=== PATIENT | female | born 1945 | race Caucasian/White ===

== ENCOUNTER 2023-04-24 17:16 | Inpatient (IN) | payer OTHER, MEDICAID ==
[~2023-04-24] VITALS: Ht 160 cm; Wt 81.6 kg
[~2023-04-24 17:16] MED LIST: ASPI81CT PO; GLYB5TAB9 PO; IBUP-2213 PO; LISI20TA2 PO; METF-1243 PO; [UNRECOGNIZED DRUG - CODE] SC
[2023-04-24 17:21] VITALS: BP 139/67; PULSE 110; RESP 22; TEMP 98; O2SAT 100
[2023-04-24 18:17] LABS: BASOPHILS % (AUTO) 0.6 % (0.0-2.0); EOSINOPHILS % (AUTO) 0.4 % (0.0-4.0); HEMATOCRIT 23.3 % (36-48); LYMPHOCYTES # (AUTO) 0.8 K/uL (2.5-16.5); LYMPHOCYTES % (AUTO) 17.8 % (20.5-51.1); MEAN CORPUSCULAR HEMOGLOBIN 31 pg (27-31); MEAN CORPUSCULAR HGB CONC 34 g/dL (33-37); MEAN CORPUSCULAR VOLUME 89.9 fL (80-94); MONOCYTES # (AUTO) 0.3 K/uL (0.8-1.0); MONOCYTES % (AUTO) 6.1 % (1.7-9.3); NEUTROPHILS # (AUTO) 3.3 K/uL (1.8-7.7); NEUTROPHILS % (AUTO) 75.1 % (42.2-75.2); PLATELET COUNT (AUTO) 143 K/uL (140-450); RED CELL DISTRIBUTION WIDTH 18.2 % (11.6-13.7); WHITE BLOOD COUNT (AUTO) 4.4 K/uL (4.8-10.8)
[2023-04-24] MEDS ORDERED: METOPROLOL 5 MG/5 ML VIAL IVP ONE (18:35)
[2023-04-24 18:51] LABS: ALANINE AMINOTRANSFERASE 19 U/L (12-78); ALBUMIN 2.1 g/dL (3.4-5.0); ALKALINE PHOSPHATASE 214 U/L (50-136); ANION GAP 11.8 (8-16); ASPARTATE AMINOTRANSFERASE 57 U/L (15-37); CALCIUM 8.3 mg/dL (8.5-10.1); CARBON DIOXIDE 29.5 mmol/L (21-32); CHLORIDE 93 mmol/L (98-107); CREATININE 3.2 mg/dL (0.6-1.3); GLUCOSE 225 mg/dL (74-106); POTASSIUM 3.3 mmol/L (3.5-5.1); SODIUM SERUM 131 mmol/L (136-145); TOTAL BILIRUBIN 1.2 mg/dL (0.0-1.0); TOTAL PROTEIN, SERUM 8.9 g/dL (6.4-8.2); UREA NITROGEN, BLOOD 35 mg/dL (7-18)
[2023-04-24 20:16] LABS: FLU A ANTIGEN negative (NEGATIVE); FLU B ANTIGEN NEGATIVE (NEGATIVE)
[2023-04-24] MEDS ORDERED: INSU100S22 SUBQ (20:20)
[2023-04-24] MEDS ORDERED: METO25TA PO (20:20)
[2023-04-24] MEDS ORDERED: ROC.25 PO (20:20)
[2023-04-24] MEDS ORDERED: EPOE10004 IJ (20:20)
[2023-04-24] MEDS ORDERED: LOSA-272 PO (20:20)
[2023-04-24] MEDS ORDERED: PANT40EC PO (20:20)
[2023-04-24] MEDS ORDERED: APR10 PO (20:20)
[2023-04-24] MEDS ORDERED: ATOR10TA PO (20:20)
[2023-04-24] MEDS ORDERED: VITA1TAB44 PO (20:20)
[2023-04-24] MEDS ORDERED: FURO-570 PO (20:20)
[2023-04-24] MEDS ORDERED: ACET-2619 PO (20:20)
[2023-04-24] MEDS ORDERED: HUM SUBQ (20:20)
[2023-04-24] MEDS ORDERED: ACETAMINOPHEN 325 MG TAB PO PRN (21:00)
[2023-04-24] MEDS ORDERED: ONDANSETRON 4 MG/2 ML VIAL IVP PRN (21:00)
[2023-04-24] MEDS ORDERED: MORPHINE SULFATE 2 MG/ML SYR IVP PRN (21:00)
[2023-04-24] MEDS ORDERED: DIGOXIN 0.25 MG/ML AMP IV ONE (21:15)
[2023-04-25 00:23] LABS: APPEARANCE,URINE CLOUDY (CLEAR); BILIRUBIN,URINE 1+ (NEGATIVE); BLOOD, URINE 3+ (NEGATIVE); COLOR,URINE YELLOW (YELLOW); LEUKOCYTE ESTERASE ,URINE 3+ (NEGATIVE); NITRITE, URINE POSITIVE (NEGATIVE); PH,URINE 6.5 (5.0-9.0); PROTEIN,URINE 3+ (NEGATIVE); UGLUCOSE NEGATIVE (NEGATIVE)
[2023-04-25 00:26] LABS: ICTOTEST NEGATIVE (NEGATIVE)
[2023-04-25 00:27] LABS: BACTERIA,URINE 2+ /HPF (None Seen); MUCUS,URINE 1+ /LPF (None Seen); RBC,URINE >100 /HPF (0-5); SQUAMOUS EPITHELIAL CELL,UR 4-10 (MOD) /LPF (0-3 (FEW)); TRICHOMONAS,URINE None Seen /HPF (None Seen); WBC,URINE TOO MANY TO COUNT /HPF (0-5); WHITE BLOOD CELL CASTS,URINE 0-3 /LPF (None Seen); YEAST,URINE None Seen /HPF (None Seen)
[2023-04-25 07:40] LABS: BASOPHILS % (AUTO) 0.5 % (0.0-2.0); EOSINOPHILS % (AUTO) 0.2 % (0.0-4.0); HEMATOCRIT 23.7 % (36-48); HEMOGLOBIN 7.8 g/dL (12.0-16.0); LYMPHOCYTES % (AUTO) 18.1 % (20.5-51.1); MEAN CORPUSCULAR HEMOGLOBIN 31 pg (27-31); MEAN CORPUSCULAR HGB CONC 33 g/dL (33-37); MONOCYTES # (AUTO) 0.4 K/uL (0.8-1.0); MONOCYTES % (AUTO) 6.8 % (1.7-9.3); NEUTROPHILS # (AUTO) 3.9 K/uL (1.8-7.7); NEUTROPHILS % (AUTO) 74.4 % (42.2-75.2); PLATELET COUNT (AUTO) 116 K/uL (140-450); RED BLOOD CELL COUNT(AUTO) 2.55 MIL/uL (4.20-5.40); RED CELL DISTRIBUTION WIDTH 18.3 % (11.6-13.7); WHITE BLOOD COUNT (AUTO) 5.3 K/uL (4.8-10.8)
[2023-04-25 09:05] LABS: ALANINE AMINOTRANSFERASE 15 U/L (12-78); ALKALINE PHOSPHATASE 161 U/L (50-136); ANION GAP 11.4 (8-16); ASPARTATE AMINOTRANSFERASE 30 U/L (15-37); CALCIUM 8.2 mg/dL (8.5-10.1); CARBON DIOXIDE 29.5 mmol/L (21-32); CHLORIDE 94 mmol/L (98-107); GLUCOSE 141 mg/dL (74-106); MAGNESIUM 1.9 mg/dL (1.8-2.4); SODIUM SERUM 132 mmol/L (136-145); TOTAL BILIRUBIN 0.9 mg/dL (0.0-1.0); TOTAL PROTEIN, SERUM 8.3 g/dL (6.4-8.2); UREA NITROGEN, BLOOD 44 mg/dL (7-18)
[2023-04-25 09:08] LABS: CREATININE 4.4 mg/dL (0.6-1.3); POTASSIUM 2.9 mmol/L (3.5-5.1)
[2023-04-25] MEDS ORDERED: KCL 20 MEQ IN 100 mL PREMIX 100 ML IV SCH (10:24)
[2023-04-25] MEDS ORDERED: ATORVASTATIN 20 MG TAB ONE (12:48)
[2023-04-25] MEDS ORDERED: METOPROLOL 5 MG/5 ML VIAL ONE (12:49)
[2023-04-25] MEDS: ECOTRIN 81 MG TABEC PO SCH (12:57)
[2023-04-25] MEDS: APIXABAN 2.5 MG TAB PO SCH ×2 (12:58→20:36)
[2023-04-25] MEDS: ATORVASTATIN 20 MG TAB PO SCH (12:59)
[2023-04-25] MEDS: METOPROLOL 50 MG TAB PO SCH ×2 (14:58→20:37)
[2023-04-25 15:50] VITALS: BP 140/59; PULSE 83; RESP 18; TEMP 97.2; O2SAT 94
[2023-04-25 15:53] VITALS: PULSE 83; RESP 18; O2SAT 94
[2023-04-25 15:53] LABS: ANION GAP 10.8 (8-16); CARBON DIOXIDE 23.3 mmol/L (21-32); CHLORIDE 105 mmol/L (98-107); CREATININE 3.3 mg/dL (0.6-1.3); GLUCOSE 198 mg/dL (74-106); POTASSIUM 5.1 mmol/L (3.5-5.1); SODIUM SERUM 134 mmol/L (136-145); UREA NITROGEN, BLOOD 38 mg/dL (7-18)
[2023-04-25 16:09] LABS: CALCIUM 5.9 mg/dL (8.5-10.1)
[2023-04-25 16:20] VITALS: PULSE 81
[2023-04-25] MEDS ORDERED: DEXTROSE 50% 50 ML SYR IVP PRN (18:25)
[2023-04-25 20:00] VITALS: BP 141/47; PULSE 86; PULSE 91; RESP 18; TEMP 97.6; O2SAT 94; O2SAT 98
[2023-04-25] MEDS: INSULIN LISPRO SLIDING SCALE 100 UNITS/ML VIAL SUBQ PRN ×2 (20:32→20:39)
[2023-04-25 21:00] VITALS: PULSE 98; RESP 18; O2SAT 98
[2023-04-25] MEDS: BLOOD GLUCOSE MONITORING 1 DEV DEV FS SCH (21:00)
[2023-04-25] MEDS ORDERED: ATORVASTATIN 20 MG TAB PO SCH (21:00)
[2023-04-26] VITALS (10 sets, daily range): BP systolic 130–180; BP diastolic 50–62; PULSE 72–99; RESP 18–20; TEMP 97.3–98.4; O2SAT 91–99
[2023-04-26 05:49] LABS: BASOPHILS % (AUTO) 0.4 % (0.0-2.0); EOSINOPHILS % (AUTO) 0.4 % (0.0-4.0); HEMATOCRIT 26.4 % (36-48); HEMOGLOBIN 8.8 g/dL (12.0-16.0); LYMPHOCYTES # (AUTO) 1.2 K/uL (2.5-16.5); LYMPHOCYTES % (AUTO) 24.6 % (20.5-51.1); MEAN CORPUSCULAR HEMOGLOBIN 31 pg (27-31); MEAN CORPUSCULAR HGB CONC 33 g/dL (33-37); MONOCYTES # (AUTO) 0.3 K/uL (0.8-1.0); MONOCYTES % (AUTO) 7.3 % (1.7-9.3); NEUTROPHILS # (AUTO) 3.2 K/uL (1.8-7.7); NEUTROPHILS % (AUTO) 67.3 % (42.2-75.2); PLATELET COUNT (AUTO) 105 K/uL (140-450); RED CELL DISTRIBUTION WIDTH 17.3 % (11.6-13.7); WHITE BLOOD COUNT (AUTO) 4.8 K/uL (4.8-10.8)
[2023-04-26] MEDS: BLOOD GLUCOSE MONITORING 1 DEV DEV FS SCH ×3 (06:33→15:44)
[2023-04-26] MEDS: ECOTRIN 81 MG TABEC PO SCH (08:24)
[2023-04-26] MEDS: ATORVASTATIN 20 MG TAB PO SCH (08:24)
[2023-04-26] MEDS: METOPROLOL 50 MG TAB PO SCH (08:25)
[2023-04-26] MEDS: APIXABAN 2.5 MG TAB PO SCH (08:26)
[2023-04-26 10:05] LABS: ALANINE AMINOTRANSFERASE 14 U/L (12-78); ALKALINE PHOSPHATASE 141 U/L (50-136); ANION GAP 15.9 (8-16); ASPARTATE AMINOTRANSFERASE 31 U/L (15-37); CALCIUM 8.4 mg/dL (8.5-10.1); CARBON DIOXIDE 25.8 mmol/L (21-32); CHLORIDE 92 mmol/L (98-107); GLUCOSE 119 mg/dL (74-106); POTASSIUM 3.7 mmol/L (3.5-5.1); SODIUM SERUM 130 mmol/L (136-145); TOTAL BILIRUBIN 0.8 mg/dL (0.0-1.0); TOTAL PROTEIN, SERUM 8.3 g/dL (6.4-8.2); UREA NITROGEN, BLOOD 58 mg/dL (7-18)
[2023-04-26 10:12] LABS: CREATININE 5.6 mg/dL (0.6-1.3)
[2023-04-26] MEDS: INSULIN LISPRO SLIDING SCALE 100 UNITS/ML VIAL SUBQ PRN ×2 (11:06→15:45)
[2023-04-26] MEDS ORDERED: EPOETIN ALFA-EPBX 4,000 UNITS/ML VIAL IV SCH (12:18)
== END 2023-04-26 19:00 | disposition home or self-care (01) | DRG 871 ==
LOC: MED 17:16 → MTU 21:00
PROVIDERS: ADMIT Hospitalist; ATTEND Hospitalist
PROC: 30233N1 Transfusion of Nonautologous Red Blood Cells into Peripheral Vein, Percutaneous Approach (ICD-10-PCS; principal; 2023-04-25)
PROC: 5A1D70Z Performance of Urinary Filtration, Intermittent, Less than 6 Hours Per Day (ICD-10-PCS; 2023-04-26)
DX: A41.9 Sepsis, unspecified organism (principal); I21.A1 Myocardial infarction type 2; N18.6 End stage renal disease; I50.23 Acute on chronic systolic (congestive) heart failure; J96.11 Chronic respiratory failure with hypoxia; I13.2 Hypertensive heart and chronic kidney disease with heart failure and with stage 5 chronic kidney disease, or end stage renal disease; E87.1 Hypo-osmolality and hyponatremia; N39.0 Urinary tract infection, site not specified; I95.9 Hypotension, unspecified; E87.6 Hypokalemia; D63.8 Anemia in other chronic diseases classified elsewhere; I48.91 Unspecified atrial fibrillation; Z20.822 Contact with and (suspected) exposure to COVID-19; E11.22 Type 2 diabetes mellitus with diabetic chronic kidney disease; Z79.899 Other long term (current) drug therapy; Z99.2 Dependence on renal dialysis; Z79.1 Long term (current) use of non-steroidal anti-inflammatories (NSAID); Z79.82 Long term (current) use of aspirin; Z79.4 Long term (current) use of insulin; Z79.01 Long term (current) use of anticoagulants
CPT/HCPCS: 36415; 36430; 71045; 80048; 80053; 81001; 82948; 83735; 84484; 85025; 86886; 86900; 86901; 86920; 87040; 87081; 87086; 93005; 96374; 96375; 97116; 97163-GP; 99291; J1160; J1644; J1815; J3480; J3490; P9016; Q5106